=== PATIENT | male | born 1960 | race Caucasian/White ===

== ENCOUNTER → 2017-10-19 08:06 | Outpatient (CLI) | payer BC, SELFPAY ==
--- NOTE | 2017-10-19 08:22 | XR_ITS ---
XR foot LT min 3V HISTORY: Pain ORDERING PHYSICIAN: Smiley Pena DPM PATIENT AGE: 57 years COMPARISON: None FINDINGS: Weightbearing views performed No fracture or dislocation. No lytic or blastic change. There is normal mineralization.. The joint spaces are well-preserved. No significant degenerative/arthritic changes. No erosive changes evident. IMPRESSION: Negative left foot, no acute finding
--- NOTE | 2017-10-19 08:22 | XR_ITS ---
XR foot RT min 3V HISTORY: Posttraumatic pain ITS.REASON: PAIN...DROPPED 150 GALLON TUB ON RT FOOT BACK IN SUMMER ORDERING PHYSICIAN: Smiley Pena DPM PATIENT AGE: 57 years COMPARISON: None FINDINGS: Weightbearing views are performed No fracture or dislocation. No lytic or blastic change. There is normal mineralization.. The joint spaces are well-preserved. No significant degenerative/arthritic changes. No erosive changes evident. IMPRESSION: Negative right foot, no acute finding
== END ==
PROVIDERS: PCP Podiatrist; Visit Provider Podiatrist
DX: M79.672 Pain in left foot (principal); M79.671 Pain in right foot
CPT/HCPCS: 73630

== ENCOUNTER → 2018-06-20 10:11 | Outpatient (CLI) | payer BC, SELFPAY ==
--- NOTE | 2018-06-20 10:19 | XR_ITS ---
XR knee LT 3V HISTORY: Left knee swelling and pain ITS.REASON: SWELLING LT KNEE, S/P OP ORDERING PHYSICIAN: Didi Conte PATIENT AGE: 58 years COMPARISON: None FINDINGS: No fracture or dislocation. No lytic or blastic change. Normal mineralization. Minimal osteoarthritic changes are present medial compartment and there is minimal spurring of the posterior patella. IMPRESSION: Minimal osteoarthritic change otherwise negative
== END ==
PROVIDERS: PCP Nurse Practitioner Family; Visit Provider Nurse Practitioner Family
DX: M25.462 Effusion, left knee (principal); Z98.890 Other specified postprocedural states
CPT/HCPCS: 73562

== ENCOUNTER → 2018-08-10 09:00 | Outpatient (CLI) | payer BC, SELFPAY | PROVIDERS: PCP Family Medicine; Visit Provider Family Medicine | DX: I20.8 Other forms of angina pectoris (principal) | CPT/HCPCS: 93017 ==

== ENCOUNTER → 2020-11-25 08:25 | Outpatient (CLI) | payer BC, SELFPAY ==
--- NOTE | 2020-11-25 | CA_ITS ---
APPROVED REPORT Exam: Exercise Treadmill Technologist: Tran Smallwood, Ht: 5 ft 10 in Wt: 175 lbs BSA: 1.97 m2 HR: 89 bpm BP: 130/83 mmHg Indications: Syncope and collapse Medical History Medications: CHOLESTEROL MED,,,,, Meclizine,,,,, Blood pressure,,,,, Stress Test Details Test: Shaheen HR Resting HR: 107 bpm Max Heart Rate (APMHR): 158 bpm Max HR Achieved: 164 bpm Target HR (85% APMHR): 134 bpm % of APMHR: 103 Recovery HR: 117 bpm BP Resting BP: 130/83 mmHg Max BP: 172/88 mmHg Recovery BP: 122.0/78.0 mmHg ECG Clinical Exercise duration: 06:00 min Highest Stage Achieved: Exercise capacity: 7.0 METs Stress ECG Conclusion Symptoms: SOA with peak exercise and fatigue Arrythmias/Ectopy: None ST-T Changes: <1.[address] segment changes Conclusion: normal excercise stress test Test Summary REST . . . . . . . Sitting REST . . . . . . . Standing REST 09:37 0.0 0.0 107 . 130/ 83 . . Stage 1 01:00 10.0 1.7 121 . . . . Stage 1 02:00 10.0 1.7 134 . . . . Stage 1 03:00 10.0 1.7 141 . 150/ 84 . . Stage 2 01:00 12.0 2.5 151 . . . . Stage 2 02:00 12.0 2.5 159 . . . . Stage 2 03:00 12.0 2.5 163 . 172/ 88 . Stop exercise at 06:00 RECOVERY 01:00 0.0 0.0 146 . . . . RECOVERY 02:00 0.0 0.0 134 . 162/ 76 . . RECOVERY 03:00 0.0 0.0 123 . 139/ 77 . . RECOVERY 04:00 0.0 0.0 119 . 139/ 77 . . RECOVERY 05:00 0.0 0.0 117 . 122/ 78 . . RECOVERY 05:14 0.0 0.0 115 . 122/ 78 . . Electronically signed by : Tarun Oliva, 11/25/2020 19:11:01
--- NOTE | 2020-11-25 08:29 | CT_ITS ---
PROCEDURE: CT HEAD/BRAIN WO CON CLINICAL INDICATION: SYNCOPE AND COLAPSE COMPARISON: No exams were available for comparison TECHNIQUE: Axial images obtained. All CT scans at the facility use one or more dose reduction, viz: automated exposure control, ma/kV adjustment per patient size (including targeted exams where dose is matched to indication, i.e. head), or iterative reconstruction technique. FINDINGS: No midline shift, mass effect, intracranial hemorrhage, hydrocephalus, or extra-axial fluid collection is evident. The calvarium has an unremarkable appearance. No mastoid effusion. No sinus air-fluid level. IMPRESSION: No acute intracranial finding Dictated by: Joseluis Cortez MD 11/25/2020 18:22 Joseluis Cortez MD in [place] 11/25/2020 18:22
--- NOTE | 2020-11-25 08:44 | CA_ITS ---
APPROVED REPORT EXAM: Comprehensive 2D, Doppler, and color-flow Echocardiogram Mail Processing Equipment Mechanic: Jaylin Card [facility], RVS Ht: 5 ft 10 in Wt: 175lbs BSA: 1.97 BP: 130/80 mmHg Indications: htn, dizziness,syncope, HLD, Family hx-cad Echo Enhancing Agent Comments: Poor acoustics throughout exam 2D Dimensions IVSd 0.93 cm LVEF (Visual) 65.70 % PWd 0.84 cm LA Volume 42.60 mL LVDd 5.04 cm LA Volume Index 21.60 mL/m2 (M/F) 16-34 LVDs 3.21 cm LVOT 1.98 cm (M/F) 1.5-2.5 M-Mode Dimensions LA Diam 3.90 cm (1.9-4.0) Ao Diam 3.20 cm (2.0-3.7) EPSs 0.54 cm TAPSE 2.17 (<1.7) LV Diastology E Decel Time 230.00 (160-240 msec) E/A Ratio 0.68 MED E' 7.30 (< 7 cm/sec) MED A' 11.70 cm/s E'/MED E' Ratio 9.88 (>14) LAT E' 8.30 (<10 cm/sec) LAT A' 11.40 cm/s E/LAT E' Ratio 8.69 (>14) Aortic Valve LVOT Max 95.00 (70-110 cm/s) LVOT VTI 20.83 cm AoV Peak Juliano. 135.00 (50-130 cm/s) AO Peak GR. 7.30 mmHg AO Mean GR. 3.90 (<5 mmHg) AO VTI 23.99 (18-25 cm) JUAQUIN (VTI) 2.67 (2.5-4.5 cm2) Mitral Valve MV E Max Juliano. 72.00 (40-130 cm/s) MV A Velocity 106.00 (40-130 cm/s) E/A Ratio 0.68 MV Decel. Time 230.00 (160-240 ms) MV PHT 67.00 ms Pulmonary Valve PV Peak Velocity 100.00 (50-150 cm/s) Tricuspid Valve TR P. Velocity 149.00 cm/s RAP Estimate 10.00 mmHg RVSP 18.90 mmHg Left Ventricle Left atrium is mildly enlarged, left ventricle is normal size, mild concentric left ventricular hypertrophy, visually estimated ejection fraction 55% with no regional wall motion abnormality, grade 1 diastolic dysfunction seen without tissue Doppler evidence of raise left atrial pressure. Right Ventricle Right atrium and right ventricle are mildly enlarged with normal contractility. Aortic Valve Aortic valve is minimally thickened and fibrosed, there is no aortic stenosis or aortic insufficiency. Mitral Valve Mitral valve is grossly normal, there is trace mitral regurgitation. Tricuspid Valve Tricuspid valve is grossly normal, there is trace tricuspid regurgitation. Pulmonic Valve Pulmonic valve is poorly visualized. Great Vessels Aortic root is normal size. Pericardium No significant pericardial effusion noted. Conclusion 1. Mild biatrial enlargement, normal left ventricular size, mild concentric left ventricular hypertrophy, visually estimated ejection fraction 55% with no regional wall motion abnormality. Grade 1 diastolic dysfunction seen without tissue Doppler evidence of raise left atrial pressure. 2. Mildly enlarged right ventricle with normal contractility. 3. Trace mitral and tricuspid regurgitation. 4. No significant pericardial effusion noted. Electronically signed by : Tarun Oliva, 11/25/2020 18:44:53
== END ==
PROVIDERS: PCP Family Medicine; Visit Provider Nurse Practitioner
DX: R55 Syncope and collapse (principal)
CPT/HCPCS: 70450; 93017; 93306

== ENCOUNTER → 2023-09-22 23:14 | Outpatient (CLI) | payer MEDICARE, SELFPAY | LOC: LAB.DROPOF 23:15 | PROVIDERS: PCP Internal Medicine; Visit Provider Nurse Practitioner Family | DX: L60.0 Ingrowing nail (principal); B96.29 Other Escherichia coli [E. coli] as the cause of diseases classified elsewhere; B95.7 Other staphylococcus as the cause of diseases classified elsewhere | CPT/HCPCS: 87070; 87205 ==

== ENCOUNTER 2023-11-10 12:06 | Outpatient (CLI) | payer MEDICARE, SELFPAY ==
[2023-11-10 12:24] LABS: Basophils % 0.6 % (0.1-2.0); Eosinophils # 0.1 K/mm3 (0.0-0.4); Eosinophils % 1.8 % (0.1-12.0); Hematocrit 47.1 % (42.0-52.0); Hemoglobin 16.1 g/dL (14.1-18.0); Lymphocytes % 34.3 % (10-50); Mean Corpuscular HGB Conc 34.2 g/dL (31.8-35.4); Mean Corpuscular Hemoglobin 29.9 pg (27.0-31.2); Mean Corpuscular Volume 87.4 fl (80-94); Mean Platelet Volume 8.1 fl (7.4-10.4); Monocytes # 0.3 K/mm3 (0.1-1.0); Neutrophils # 3.3 K/mm3 (1.8-7.8); Neutrophils % 58.3 % (37.0-80.0); Platelet Count 229 K/mm3 (142-424); Red Blood Count 5.39 M/mm3 (4.60-6.20); Red Cell Distribution Width 13.4 % (11.5-17.5); White Blood Count 5.7 K/mm3 (4.8-10.8)
[2023-11-10 13:14] LABS: Chloride 105 mmol/L (98-107)
[2023-11-10 13:15] LABS: Potassium 3.6 mmoL/L (3.5-5.1); Sodium 138 mmol/L (136-145)
[2023-11-10 13:17] LABS: Alanine Aminotransferase 21 U/L (12-78); Alkaline Phosphatase 79 U/L (38-126); Anion Gap 9.6 mEq/L (5-15); Aspartate Amino Transferase 22 U/L (17-59); Bilirubin,Total 0.6 mg/dl (0.2-1.3); Blood Urea Nitrogen 8 mg/dl (9-20); Carbon Dioxide 27 mmol/L (22.0-30.0); Cholesterol 171 mg/dl (140-200); Estimated Glomerular Filt Rate 85 ml/min (>60); GFR (African American) 102 ML/MIN (>60); Triglycerides 116 mg/dl (30-150); VLDL Cholesterol 23 mg/dL (0-40)
[2023-11-10 13:18] LABS: Albumin Level 4.1 g/dl (3.5-5.0); Albumin/Globulin Ratio 1.5 (1.1-1.8); Calcium 8.5 mg/dl (8.4-10.2); Chol/HDL Ratio 4.5 (1-3.5); Globulin 2.8 g/dL (1.3-3.2); Glucose 87 mg/dl (74-100); HDL Cholesterol 38 mg/dl (40-60); Total Protein,Serum 6.9 g/dl (6.3-8.2)
[2023-11-10 13:35] LABS: Direct LDL Cholesterol 99.16 mg/dL (100-129)
[2023-11-10 13:36] LABS: Free T4 (Free Thyroxine) 1.13 ng/dl (0.78-2.19)
[2023-11-10 13:51] LABS: Thyroid Stimulating Hormone 2.82 uIU/mL (0.465-4.68)
== END 2023-11-10 23:59 ==
LOC: LAB.DROPOF 12:07
PROVIDERS: PCP Internal Medicine; Visit Provider Internal Medicine
DX: R53.83 Other fatigue; E78.5 Hyperlipidemia, unspecified; R06.09 Other forms of dyspnea; R07.9 Chest pain, unspecified; R51.9 Headache, unspecified; R42 Dizziness and giddiness; Z79.899 Other long term (current) drug therapy
CPT/HCPCS: 80053; 80061; 84439; 84443; 85025